=== PATIENT | female | born 1990 | race Caucasian/White ===

== ENCOUNTER 2016-08-24 22:32 | Emergency (ER) | payer OTHER ==
[~2016-08-24] VITALS: Ht 175.3 cm; Wt 104.1 kg
[~2016-08-24 22:32] MED LIST: ZOFR4TAB3 SL
[2016-08-24 22:47] VITALS: BP 129/78; PULSE 66; RESP 20; TEMP 98.8; O2SAT 100
--- NOTE | 2016-08-24 23:14 | PD ---
HPI Chief Complaint: Musculoskeletal Complaint Time Seen by Provider: 23:04 Travel History International Travel<30 days: No Contact w/Intl Traveler<30days: No Traveled to known affect area: No History of Present Illness HPI This 26-year-old female is complaining of secretions from her breast. She noticed it on the left breast 2 weeks ago. Within the last day or so it started from the right side also. She does not think she is . She has finished her period. Has a history of fibrocystic disease of the breast. 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 She has never been . Her last period was a few days ago. She says she been feeling weak for the last couple of days. She had mono in the past and she says she feels like she has mono again. There has not been any fever or sore throat PFSH Past Medical History Hx Anticoagulant Therapy: No ADHD: Yes Asthma: Yes (CHILD) Chemotherapy: No Cerebrovascular Accident: No Diabetes: No Diminished Hearing: No Respiratory: Yes (ASTHMA A CHILD) Immunizations Current: Yes : 0 Past Surgical History Ear Surgery: Yes (bilat TUBES x3) Hysterectomy: No Tonsillectomy: Yes Social History Alcohol Use: Yes (occas. beer or wine) Tobacco Use: No Substance Use: No Allergies-Medications (Allergen,Severity, Reaction): Coded Allergies: Nexium (Verified Allergy, Severe, CARDIAC PROBLEMS, 12/28/15) Augmentin (Unverified Adverse Reaction, Unknown, VOMITING, 12/28/15) Reported Meds & Prescriptions Reported Meds & Active Scripts Active Reported Zofran ODT (Ondansetron HCl) 4 Mg Tab 4 Mg SL Q6H PRN FOR NAUSEA/VOMITING Review of Systems General / Constitutional: No: Fever, Chills Eyes: No: Blurred Vision HENT: No: Headaches, Vertigo Cardiovascular: No: Chest Pain or Discomfort, Palpitations Respiratory: No: Cough, Shortness of Breath Gastrointestinal: No: Vomiting, Diarrhea Genitourinary: No: Urgency, Frequency Musculoskeletal: No: Myalgias Skin: No Itching Neurologic: No: Weakness Physical Exam Narrative GENERAL: Well-developed female SKIN: Warm and dry. HEAD: Atraumatic. Normocephalic. EYES: Pupils equal and round. No scleral icterus. No injection or drainage. ENT: No nasal bleeding or discharge. Mucous membranes pink and moist. NECK: Trachea midline. No JVD. Examination of the breast shows no masses. I do not detect any galactorrhea at this time CARDIOVASCULAR: Regular rate and rhythm. No murmur appreciated. RESPIRATORY: No accessory muscle use. Clear to auscultation. Breath sounds equal bilaterally. GASTROINTESTINAL: Abdomen soft, non-tender, nondistended. Hepatic and splenic margins not palpable. MUSCULOSKELETAL: No obvious deformities. No clubbing. No cyanosis. No edema. NEUROLOGICAL: Awake and alert. No obvious cranial nerve deficits. Motor grossly within normal limits. Normal speech. PSYCHIATRIC: Appropriate mood and affect; insight and judgment normal. 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 The fact that the galactorrhea is bilateral makes an anatomic abnormality unlikely Diagnosis Primary Impression: Galactorrhea Disposition: 01 DISCHARGE HOME Condition: Stable Nguyễn Perez MD Aug 24, 2016 23:14
[2016-08-24 23:55] LABS: AUTOMATED NEUTROPHIL # 4.7 TH/MM3 (1.8-7.7); BASOPHIL # 0.3 TH/MM3 (0-0.2); BASOPHIL % 2.7 % (0.0-2.0); EOSINOPHIL # 0.2 TH/MM3 (0-0.4); EOSINOPHIL % 1.7 % (0.0-4.0); HEMATOCRIT 38.7 % (35.0-46.0); HEMO FLAGS DIFF FINAL; LYMPH % 37.9 % (9.0-44.0); LYMPHOCYTE # 3.6 TH/MM3 (1.0-4.8); MEAN CELL VOLUME 86.9 FL (80.0-100.0); MEAN CORPUSCULAR HEMOGLOBIN 28.2 PG (27.0-34.0); MEAN CORPUSCULAR HGB CONC 32.5 % (32.0-36.0); MONO % 6.1 % (0.0-8.0); NEUT % 51.6 % (16.0-70.0); PLATELET COUNT 331 TH/MM3 (150-450); RED BLOOD COUNT 4.45 MIL/MM3 (4.00-5.30); RED CELL DISTRIBUTION WIDTH 12.8 % (11.6-17.2); WHITE BLOOD COUNT 9.4 TH/MM3 (4.0-11.0)
[2016-08-25 00:04] LABS: POTASSIUM 3.5 MEQ/L (3.5-5.1)
[2016-08-25 00:07] LABS: BICARBONATE 25.7 MEQ/L (21.0-32.0)
[2016-08-25 01:14] VITALS: BP 110/65
== END 2016-08-25 01:19 | disposition home or self-care (01) ==
LOC: PHED 22:32
DX: N64.3 Galactorrhea not associated with childbirth (principal); N60.19 Diffuse cystic mastopathy of unspecified breast; F90.9 Attention-deficit hyperactivity disorder, unspecified type; J45.909 Unspecified asthma, uncomplicated
CPT/HCPCS: 80048; 84146; 84703; 85025; 99284

== ENCOUNTER 2016-11-02 22:37 | Emergency (ER) | payer OTHER ==
[~2016-11-02] VITALS: Ht 177.8 cm; Wt 107.0 kg
[2016-11-02 22:45] VITALS: BP 128/84; PULSE 75; RESP 18; TEMP 98.8; O2SAT 98
--- NOTE | 2016-11-02 22:51 | PD ---
HPI Chief Complaint: chest and abdominal pain Time Seen by Provider: 22:40 Travel History International Travel<30 days: No Contact w/Intl Traveler<30days: No History of Present Illness HPI This is a 26 year old female who had a partial thyroidectomy performed 2 weeks ago who presents to the emergency department with 30 minutes of left-sided chest discomfort described as sharp and stabbing, constant, severe associated with shortness of breath. She says the pain gets worse when she takes a deep breath. She also has a significant amount of pain in her right upper quadrant which just started and radiates to her back. She feels nauseous but has not vomited. She denies any fevers or chills. She's not noticed any leg swelling. She says over the past 2-3 days she's had decreased appetite. She's been generally weak. She denies any diarrhea. She's never had symptoms like this before. PFSH Past Medical History Hx Anticoagulant Therapy: No ADHD: Yes Asthma: Yes (CHILD) Chemotherapy: No Cerebrovascular Accident: No Diabetes: No Diminished Hearing: No Reproductive: Yes (HEAVY PERIODS) Respiratory: Yes (ASTHMA A CHILD) Immunizations Current: Yes : 0 Past Surgical History Ear Surgery: Yes (BILATERAL TUBES) Hysterectomy: No Tonsillectomy: Yes Social History Alcohol Use: Yes (occas. beer or wine) Tobacco Use: No Substance Use: No Allergies-Medications (Allergen,Severity, Reaction): Coded Allergies: Gadolinium Derivatives (Verified Allergy, Severe, Swelling, 11/02/16) Nexium (Verified Allergy, Severe, CARDIAC PROBLEMS, 11/02/16) Augmentin (Unverified Adverse Reaction, Unknown, VOMITING, 12/28/15) Reported Meds & Prescriptions Reported Meds & Active Scripts Active Reported Cabergoline 0.5 Mg Tab 0.25 Mg PO 2XWEEK Review of Systems Except as stated in HPI: all other systems reviewed are Neg Physical Exam Narrative GENERAL: Uncomfortable appearing SKIN: Pale, well healing incisional scar over the anterior neck with no erythema or drainage HEAD: Atraumatic. Normocephalic. EYES: Pupils equal and round. No injection or drainage. ENT: Moist mucous membranes NECK: Trachea midline. CARDIOVASCULAR: Regular rate and rhythm. No murmur appreciated. RESPIRATORY: Tachypneic. Clear to auscultation. Breath sounds equal bilaterally. GASTROINTESTINAL: Abdomen soft, tender to palpation in the right upper quadrant with guarding. MUSCULOSKELETAL: No obvious deformities. NEUROLOGICAL: Awake and alert. No obvious cranial nerve deficits. Moving all extremities. PSYCHIATRIC: Appropriate mood and affect; insight and judgment normal. Data Data Last Documented VS Vital Signs Date Time Temp Pulse Resp B/P Pulse Ox O2 Delivery O2 Flow Rate FiO2 11/02/16 23:48 66 16 116/67 99 Room Air 11/02/16 22:45 98.8 Orders Complete Blood Count With Diff (11/02/16 22:47) Comprehensive Metabolic Panel (11/02/16 22:47) Ed Urine Pregnancytest Poc (11/02/16 22:47) Urinalysis - C+S If Indicated (11/02/16 22:47) D-Dimer (11/02/16 22:47) Lipase (11/02/16 22:47) Chest, Single Ap (11/02/16 ) Sodium Chlor 0.9% 1000 Ml Inj (Ns 1000 M (11/02/16 23:00) Ondansetron Inj (Zofran Inj) (11/02/16 23:00) Troponin I (11/02/16 22:47) Electrocardiogram (11/02/16 ) Morphine Inj (Morphine Inj) (11/03/16 00:15) Ct Pulmonary Angiogram (11/03/16 ) Ct Abd/Pel W Iv Contrast(Rout) (11/03/16 ) Ondansetron Inj (Zofran Inj) (11/03/16 00:45) Iohexol 350 Inj (Omnipaque 350 Inj) (11/03/16 01:03) Labs Laboratory Tests Test 11/02/16 11/02/16 23:00 23:20 White Blood Count 11.7 TH/MM3 Red Blood Count 4.52 MIL/MM3 Hemoglobin 12.9 GM/DL Hematocrit 39.3 % Mean Corpuscular Volume 86.8 FL Mean Corpuscular Hemoglobin 28.6 PG Mean Corpuscular Hemoglobin 33.0 % Concent Red Cell Distribution Width 12.9 % Platelet Count 399 TH/MM3 Mean Platelet Volume 6.8 FL Neutrophils (%) (Auto) 53.4 % Lymphocytes (%) (Auto) 33.1 % Monocytes (%) (Auto) 7.6 % Eosinophils (%) (Auto) 2.7 % Basophils (%) (Auto) 3.2 % Neutrophils # (Auto) 6.2 TH/MM3 Lymphocytes # (Auto) 3.9 TH/MM3 Monocytes # (Auto) 0.9 TH/MM3 Eosinophils # (Auto) 0.3 TH/MM3 Basophils # (Auto) 0.4 TH/MM3 CBC Comment DIFF FINAL Differential Comment Sodium Level 141 MEQ/L Potassium Level 4.0 MEQ/L Chloride Level 106 MEQ/L Carbon Dioxide Level 26.1 MEQ/L Anion Gap 9 MEQ/L Blood Urea Nitrogen 8 MG/DL Creatinine 0.95 MG/DL Estimat Glomerular Filtration 71 ML/MIN Rate Random Glucose 105 MG/DL Calcium Level 8.8 MG/DL Total Bilirubin 0.4 MG/DL Aspartate Amino Transf 26 U/L (AST/SGOT) Alanine Aminotransferase 39 U/L (ALT/SGPT) Alkaline Phosphatase 75 U/L Troponin I LESS THAN 0.02 NG/ML Total Protein 7.9 GM/DL Albumin 4.0 GM/DL Lipase 231 U/L D-Dimer Quantitative (PE/DVT) 0.68 MG/L FEU Urine Color YELLOW Urine Turbidity CLEAR Urine pH 5.5 Urine Specific [place] 1.011 Urine Protein NEG mg/dL Urine Glucose (UA) NEG mg/dL Urine Ketones NEG mg/dL Urine Occult Blood NEG Urine Nitrite NEG Urine Bilirubin NEG Urine Leukocyte Esterase NEG Urine Squamous Epithelial 0-5 /hpf Cells Urine Amorphous Sediment SMALL Microscopic Urinalysis Comment CULT NOT INDICATED MDM Medical Decision Making Medical Screen Exam Complete: Yes Emergency Medical Condition: Yes Interpretation(s) Afebrile, no tachycardia, normotensive Mild Leukocytosis Electrolytes are reassuring Troponin is normal Lipase is 231 D dimer slightly elevated Urinalysis is negative for infection EKG: Normal sinus rhythm with no ST changes Last 24 hours Impressions Chest X-Ray 11/02/16 0000 Signed Impressions: Service Date/Time: Wednesday, November 02, 2016 23:05 - CONCLUSION: No acute disease. Lb Lin MD CT chest: No pulmonary embolism CT abdomen and pelvis: No acute process Differential Diagnosis Pulmonary embolism, pericarditis, pleural effusion, pneumonia, cholelithiasis, cholecystitis Narrative Course This is a 26 year old female who recently had a thyroidectomy who presents to the emergency department with chest pain and right upper quadrant abdominal pain. She was quite uncomfortable appearing on arrival, tachypneic and moaning in pain. She is placed on a monitor and an IV was established. Labs are obtained which were all reassuring. She did mildly elevated d-dimer. CT pulmonary angiogram were obtained and given her degree of discomfort a CT abdomen and pelvis was also obtained. All of her imaging and labs are reassuring. I don't have a good explanation for her symptoms but I don't think there is a surgical or emergent nature to them. I think patient can be safely discharged home and can follow-up with her primary care physician. Diagnosis Primary Impression: Abdominal pain Qualified Code: R10.11 - Right upper quadrant abdominal pain Patient Instructions: General Instructions Additional Instructions: If you develop severe or worsening abdominal pain, fever>100.4, persistent vomiting or inability to eat or drink return to the emergency department immediately. Follow up with your primary care physician in 1-2 days for a check-up. Med/Other Pt SpecificInfo: Prescription(s) given Scripts Ondansetron Odt (Zofran Odt)4 Mg Tab4 Mg SL Q6HR PRN (Nausea/Vomiting) #15 TAB Prov:Coty Conte MD 11/03/16 Disposition: 01 DISCHARGE HOME Condition: Stable Coty Conte MD Nov 02, 2016 22:51
[2016-11-02] MEDS ORDERED: ONDANSETRON HCL 4 MG/2 ML VIAL IV PUSH ONE (23:00)
[2016-11-02] MEDS ORDERED: SODIUM CHLOR 0.9% 1000 ML INJ 1,000 ML IV ONE (23:00)
[2016-11-02 23:10] LABS: AUTOMATED NEUTROPHIL # 6.2 TH/MM3 (1.8-7.7); BASOPHIL # 0.4 TH/MM3 (0-0.2); BASOPHIL % 3.2 % (0.0-2.0); EOSINOPHIL # 0.3 TH/MM3 (0-0.4); EOSINOPHIL % 2.7 % (0.0-4.0); HEMATOCRIT 39.3 % (35.0-46.0); LYMPH % 33.1 % (9.0-44.0); LYMPHOCYTE # 3.9 TH/MM3 (1.0-4.8); MEAN CELL VOLUME 86.8 FL (80.0-100.0); MEAN CORPUSCULAR HEMOGLOBIN 28.6 PG (27.0-34.0); MONO % 7.6 % (0.0-8.0); NEUT % 53.4 % (16.0-70.0); PLATELET COUNT 399 TH/MM3 (150-450); RED BLOOD COUNT 4.52 MIL/MM3 (4.00-5.30); RED CELL DISTRIBUTION WIDTH 12.9 % (11.6-17.2); WHITE BLOOD COUNT 11.7 TH/MM3 (4.0-11.0)
[2016-11-02 23:14] LABS: HEMO FLAGS DIFF FINAL
[2016-11-02 23:17] LABS: CHLORIDE 106 MEQ/L (98-107); SODIUM (NA) 141 MEQ/L (136-145)
[2016-11-02 23:22] LABS: ANION GAP 9 MEQ/L (5-15); BICARBONATE 26.1 MEQ/L (21.0-32.0); BLOOD UREA NITROGEN 8 MG/DL (7-18)
[2016-11-02 23:24] LABS: ALT (GPT) 39 U/L (10-53); AST (GOT) 26 U/L (15-37)
[2016-11-02 23:25] LABS: GLOMERULAR FILTRATION RATE 71 ML/MIN (>89)
[2016-11-02 23:26] LABS: TOTAL BILIRUBIN ADULT 0.4 MG/DL (0.2-1.0)
[2016-11-02 23:27] LABS: ALKALINE PHOSPHATASE 75 U/L (45-117)
[2016-11-02 23:41] LABS: BLOOD, URINE NEG (NEG); GLUCOSE,URINE NEG (NEG); KETONE, URINE NEG (NEG); NITRITE,URINE NEG (NEG); PH, URINE 5.5 (5.0-8.5)
[2016-11-02 23:48] VITALS: BP 116/67; PULSE 66; RESP 16; O2SAT 99
[2016-11-02] MEDS ORDERED: CABE0.5T PO (23:49)
[2016-11-02 23:51] LABS: URINE COLOR YELLOW (YELLW/STRAW)
[2016-11-02 23:52] LABS: SQUAMOUS EPITHELIAL CELL URINE 0-5 /hpf (0-5)
[2016-11-02 23:53] LABS: COMMENT (UR) CULT NOT INDICATED; CULTURE IF INDICATED CULT NOT INDICATED
[2016-11-03] MEDS ORDERED: MORPHINE SULFATE 4 MG/ML INJ IV PUSH ONE (00:15)
--- NOTE | 2016-11-03 00:16 | RADHPO ---
EXAM DATE/TIME: 11/02/2016 23:05 [facility] COMPARISON: No previous studies available for comparison. INDICATIONS : Short of breath. MEDICAL HISTORY : None. SURGICAL HISTORY : None. ENCOUNTER: Initial ACUITY: 1 day PAIN SCORE: 7/10 LOCATION: Bilateral chest FINDINGS: A single view of the chest demonstrates the lungs to be symmetrically aerated without evidence of mas s, infiltrate or effusion. The cardiomediastinal contours are unremarkable. Osseous structures are intact. CONCLUSION: No acute disease. Lb Lin MD on November 03, 2016 at 0:14 Board Certified Radiologist. This report was verified electronically.
[2016-11-03 00:25] VITALS: RESP 16
[2016-11-03] MEDS ORDERED: ONDANSETRON HCL 4 MG/2 ML VIAL IV ONE (00:45)
[2016-11-03] MEDS ORDERED: IOHEXOL 350 MG/ML 10 ML VIAL (for RAD DIAG) IV ONE (01:03)
--- NOTE | 2016-11-03 01:21 | RADHPO ---
EXAM DATE/TIME: 11/03/2016 00:41 [facility] COMPARISON: No previous studies available for comparison. INDICATIONS : Left sided chest pain with shortness of breath. IV CONTRAST: 100 cc Omnipaque 350 (iohexol) IV ; Cumulative dose for multiple exams. RADIATION DOSE: 24.61 CTDIvol (mGy) MEDICAL HISTORY : None SURGICAL HISTORY : Thyroidectomy. ENCOUNTER: Initial ACUITY: 1 day PAIN SCALE: 8/10 LOCATION: Left chest TECHNIQUE: Volumetric scanning of the chest was performed using a pulmonary embolism protocol MIP images were re constructed. Using automated exposure control and adjustment of the mA and/or kV according to patien t size, radiation dose was kept as low as reasonably achievable to obtain optimal diagnostic quality images. FINDINGS: PULMONARY ARTERIES: No filling defects are seen in the pulmonary arteries through the segmental level. LUNGS: There is no consolidation or pneumothorax . No concerning pulmonary nodule is visualized. PLEURAE: There is no pleural thickening or pleural effusion. MEDIASTINUM: There is good visualization of the great vessels of the middle mediastinum. No evidence of mediastin al or hilar adenopathy/mass. MUSCULOSKELETAL: Within normal limits for patient age. MISCELLANEOUS: The visualized upper abdominal organs demonstrate no acute abnormality. CONCLUSION: 1. No evidence for pulmonary embolism. 2. No infiltrate or pleural effusion. Lb Lin MD on November 03, 2016 at 1:19 Board Certified Radiologist. This report was verified electronically.
--- NOTE | 2016-11-03 01:23 | RADHPO ---
EXAM DATE/TIME: 11/03/2016 00:41 [facility] COMPARISON: CT ABDOMEN & PELVIS W CONTRAST, October 04, 2015, 6:38. INDICATIONS : Right upper quadrant pain radiating to the back. IV CONTRAST: 100 cc Omnipaque 350 (iohexol) IV ; Cumulative dose for multiple exams. ORAL CONTRAST: No oral contrast ingested. RADIATION DOSE: 22.01 CTDIvol (mGy) MEDICAL HISTORY : None SURGICAL HISTORY : Thyroidectomy. ENCOUNTER: Initial ACUITY: 1 day PAIN SCALE: 7/10 LOCATION: Right upper quadrant TECHNIQUE: Volumetric scanning of the abdomen and pelvis was performed. Using automated exposure control and ad justment of the mA and/or kV according to patient size, radiation dose was kept as low as reasonably achievable to obtain optimal diagnostic quality images. FINDINGS: LOWER LUNGS: The visualized lower lungs are clear. LIVER: Homogeneous density without lesion. There is no dilation of the biliary tree. No calcified gallston es. SPLEEN: Normal size without lesion. PANCREAS: Within normal limits. KIDNEYS: Normal in size and shape. There is no mass, stone or hydronephrosis. ADRENAL GLANDS: Within normal limits. VASCULAR: There is no aortic aneurysm. BOWEL/MESENTERY: The stomach, small bowel, and colon demonstrate no acute abnormality. There is no free intraperitone al air or fluid. ABDOMINAL WALL: Within normal limits. RETROPERITONEUM: There is no lymphadenopathy. BLADDER: No wall thickening or mass. REPRODUCTIVE: Within normal limits. INGUINAL: There is no lymphadenopathy or hernia. MUSCULOSKELETAL: Within normal limits for patient age. CONCLUSION: 1. No acute inflammatory process. Lb Lin MD on November 03, 2016 at 1:20 Board Certified Radiologist. This report was verified electronically.
[2016-11-03] MEDS ORDERED: ZOFR4TAB3 SL ×2 (01:28→01:29)
[2016-11-03 01:54] VITALS: BP_SYST 116
--- NOTE | 2016-11-03 13:56 | EKG ---
Date Performed: 11/02/2016 Time Performed: 22:48:46 PTAGE: 26 years EKG: Sinus rhythm . Normal ECG NO PREVIOUS TRACING DOCTOR: Rama Esparza Interpretating Date/Time 11/03/2016 13:55:36
== END 2016-11-03 01:55 | disposition home or self-care (01) ==
LOC: PHED 22:37
DX: R10.11 Right upper quadrant pain (principal); J45.909 Unspecified asthma, uncomplicated
CPT/HCPCS: 71010; 71275; 74177; 80053; 81001; 83690; 84484; 84703; 85025; 85379; 93005; 96361; 96374; 96375; 96376; 99284; J2270; J2405; J7030; Q9967

== ENCOUNTER 2017-03-23 15:51 | Emergency (ER) | payer OTHER ==
[~2017-03-23] VITALS: Ht 175.3 cm; Wt 111.0 kg
[~2017-03-23 15:51] MED LIST changes: +CABE0.5T PO
[2017-03-23 16:02] VITALS: BP 130/69; PULSE 100; RESP 32; TEMP 98.2; O2SAT 99
[2017-03-23 16:33] VITALS: BP 130/69; PULSE 70; RESP 18; O2SAT 100
[2017-03-23] MEDS ORDERED: BROM5CAP PO (16:38)
[2017-03-23] MEDS ORDERED: CLIN1CAP6 PO (16:38)
[2017-03-23] MEDS ORDERED: SODIUM CHLOR 0.9% 1000 ML INJ 1,000 ML IV SCH (17:04)
[2017-03-23] MEDS ORDERED: HYDROmorphone HCL PF 2 MG/ML VIAL IVS ONE (17:15)
[2017-03-23] MEDS ORDERED: ALUMINUM/MAGNESIUM/SIMETH 30 ML CUP PO ONE (17:15)
[2017-03-23] MEDS ORDERED: LIDOCAINE VISCOUS 2% SOLN 15 ML UDC PO ONE (17:15)
[2017-03-23 17:22] LABS: AUTOMATED NEUTROPHIL # 8.4 TH/MM3 (1.8-7.7); BASOPHIL # 0.2 TH/MM3 (0-0.2); BASOPHIL % 1.5 % (0.0-2.0); EOSINOPHIL # 0.1 TH/MM3 (0-0.4); EOSINOPHIL % 1.2 % (0.0-4.0); HEMATOCRIT 35.8 % (35.0-46.0); LYMPH % 22.4 % (9.0-44.0); LYMPHOCYTE # 2.7 TH/MM3 (1.0-4.8); MEAN CELL VOLUME 84.4 FL (80.0-100.0); MEAN CORPUSCULAR HEMOGLOBIN 27.6 PG (27.0-34.0); MEAN CORPUSCULAR HGB CONC 32.8 % (32.0-36.0); MONO % 4.3 % (0.0-8.0); NEUT % 70.6 % (16.0-70.0); PLATELET COUNT 370 TH/MM3 (150-450); RED BLOOD COUNT 4.24 MIL/MM3 (4.00-5.30); RED CELL DISTRIBUTION WIDTH 12.4 % (11.6-17.2); WHITE BLOOD COUNT 11.9 TH/MM3 (4.0-11.0)
[2017-03-23 17:24] LABS: HEMO FLAGS DIFF FINAL
[2017-03-23 17:32] LABS: CHLORIDE 105 MEQ/L (98-107); POTASSIUM 3.4 MEQ/L (3.5-5.1); SODIUM (NA) 138 MEQ/L (136-145)
[2017-03-23 17:35] LABS: ANION GAP 5 MEQ/L (5-15); BLOOD UREA NITROGEN 12 MG/DL (7-18)
[2017-03-23 17:38] LABS: GLOMERULAR FILTRATION RATE 67 ML/MIN (>89)
[2017-03-23 17:43] LABS: BETA HCG QUANT LESS THAN 1 MIU/ML (0-5)
[2017-03-23] MEDS ORDERED: IOHEXOL 350 MG/ML 10 ML VIAL (for RAD DIAG) IVCONTRAST ONE (18:01)
--- NOTE | 2017-03-23 18:47 | PD ---
HPI Chief Complaint: ENT Complaint Time Seen by Provider: 16:56 Travel History International Travel<30 days: No Contact w/Intl Traveler<30days: No Traveled to known affect area: No History of Present Illness HPI The patient's and 27 years old. She is a history of L hemithyroidectomy due to concern for thyroid neoplasm. Today shortly after using a tanning bed the patient experienced sudden onset of extreme pain in the region of the neck. Chest pain radiating from the region of the thyroid is reported. Patient reports constant 8/10 pain with occasional spikes to 10 over 10. Patient describes it as a sensation as though the thyroid gland "ripped open" and as if there is a golf ball in the throat. Pain with swallowing and breathing is reported. No fever. No similar prior episodes. Pain quality described as spasming. History Past Medical History Tetanus Vaccination: Unknown LMP: LAST WEEK : 0 Social History Alcohol Use: Yes (occas. beer or wine) Tobacco Use: No Allergies-Medications (Allergen,Severity, Reaction): Coded Allergies: esomeprazole (Unverified Allergy, Severe, CARDIAC PROBLEMS, 03/23/17) gadobenic acid (Unverified Allergy, Severe, Swelling, 03/23/17) gadodiamide (Unverified Allergy, Severe, Swelling, 03/23/17) gadoteridol (Unverified Allergy, Severe, Swelling, 03/23/17) amoxicillin (Unverified Adverse Reaction, Unknown, VOMITING, 03/23/17) clavulanic acid (Unverified Adverse Reaction, Unknown, VOMITING, 03/23/17) Reported Meds & Prescriptions Reported Meds & Active Scripts Active Tramadol (Tramadol HCl) 50 Mg Tab 100 Mg PO Q6H PRN Reported Clindamycin (Clindamycin HCl) 300 Mg Cap 300 Mg PO TID Bromocriptine (Bromocriptine Mesylate) 5 Mg Cap 7.5 Mg PO DAILY Review of Systems Except as stated in HPI: all other systems reviewed are Neg General / Constitutional: No: Fever Cardiovascular: Positive: Chest Pain or Discomfort Respiratory: No: Cough, Shortness of Breath Physical Exam Narrative GENERAL: 27-year-old female pleasant well-nourished well-developed SKIN: Warm and dry. HEAD: Atraumatic. Normocephalic. EYES: Pupils equal and round. No scleral icterus. No injection or drainage. ENT: No nasal bleeding or discharge. Mucous membranes pink and moist. NECK: Trachea midline. No JVD. There is no mass crepitus erythema induration or warmth about the neck. Mildly prominent submandibular lymph nodes are present bilaterally with minimal tenderness. CARDIOVASCULAR: Regular rate and rhythm. RESPIRATORY: No accessory muscle use. Clear to auscultation. Breath sounds equal bilaterally. GASTROINTESTINAL: Abdomen soft, non-tender, nondistended. Hepatic and splenic margins not palpable. MUSCULOSKELETAL: Extremities without clubbing, cyanosis, or edema. No obvious deformities. NEUROLOGICAL: Awake and alert. No obvious cranial nerve deficits. Motor grossly within normal limits. Five out of 5 muscle strength in the arms and legs. Normal speech. PSYCHIATRIC: Appropriate mood and affect; insight and judgment normal. Data Data Last Documented VS Vital Signs Date Time Temp Pulse Resp B/P (MAP) Pulse Ox O2 Delivery O2 Flow Rate FiO2 03/23/17 16:33 70 18 130/69 (89) 100 Room Air 03/23/17 16:02 98.2 Vital signs reviewed Orders Orders Complete Blood Count With Diff (03/23/17 17:04) Basic Metabolic Panel (Bmp) (03/23/17 17:04) Thyroid Stimulating Hormone (03/23/17 17:04) Ecg Monitoring (03/23/17 17:04) Beta Hcg (Quant/Titer) (03/23/17 17:04) Troponin I (03/23/17 17:04) Hydromorphone Pf Inj (Dilaudid Pf Inj) (03/23/17 17:15) Sodium Chlor 0.9% 1000 Ml Inj (Ns 1000 M (03/23/17 17:04) Al-Mag Hy-Si 40-40-4 Mg/Ml Liq (Mag-Al P (03/23/17 17:15) Lidocaine 2% Viscous (Xylocaine 2% Visco (03/23/17 17:15) Ct Soft Tiss Neck W Iv Cont (03/23/17 ) Ed Urine Pregnancytest Poc (03/23/17 17:04) Iohexol 350 Inj (Omnipaque 350 Inj) (03/23/17 18:01) Hydromorphone Pf Inj (Dilaudid Pf Inj) (03/23/17 19:00) Labs Laboratory Tests Test 03/23/17 17:15 White Blood Count 11.9 TH/MM3 Red Blood Count 4.24 MIL/MM3 Hemoglobin 11.7 GM/DL Hematocrit 35.8 % Mean Corpuscular Volume 84.4 FL Mean Corpuscular Hemoglobin 27.6 PG Mean Corpuscular Hemoglobin Concent 32.8 % Red Cell Distribution Width 12.4 % Platelet Count 370 TH/MM3 Mean Platelet Volume 6.9 FL Neutrophils (%) (Auto) 70.6 % Lymphocytes (%) (Auto) 22.4 % Monocytes (%) (Auto) 4.3 % Eosinophils (%) (Auto) 1.2 % Basophils (%) (Auto) 1.5 % Neutrophils # (Auto) 8.4 TH/MM3 Lymphocytes # (Auto) 2.7 TH/MM3 Monocytes # (Auto) 0.5 TH/MM3 Eosinophils # (Auto) 0.1 TH/MM3 Basophils # (Auto) 0.2 TH/MM3 CBC Comment DIFF FINAL Differential Comment Blood Urea Nitrogen 12 MG/DL Creatinine 1.00 MG/DL Random Glucose 91 MG/DL Calcium Level 8.3 MG/DL Sodium Level 138 MEQ/L Potassium Level 3.4 MEQ/L Chloride Level 105 MEQ/L Carbon Dioxide Level 28.0 MEQ/L Anion Gap 5 MEQ/L Estimat Glomerular Filtration Rate 67 ML/MIN Troponin I LESS THAN 0.02 NG/ML Thyroid Stimulating Hormone 3rd Gen 2.730 uIU/ML Human Chorionic Gonadotropin, Quant LESS THAN 1 MIU/ML MDM Medical Decision Making Medical Screen Exam Complete: Yes Emergency Medical Condition: Yes Differential Diagnosis Thyroid toxicosis, dissection of the carotid arteries, cellulitis, abscess, anaphylaxis, bleed, neoplasm Narrative Course CBC & BMP Diagram 03/23/17 17:15 Calcium Level 8.[address] neck reveals digastric lymph nodes up to 1.2cm, otherwise 0.7 cm nodule right lobe of the thyroid and mild mucosal thickening in the maxillary sinuses The patient is resting comfortably and feels better, is alert and in no distress. The patients results and examination findings were discussed. The repeat examination is unremarkable and benign. The history, exam, diagnostic testing, and current condition do not suggest any significant pathology to warrant further testing, continued ED treatment, admission, or surgical evaluation at this point. The vital signs have been stable. The patient does not have uncontrollable pain, intractable vomiting, or other significant symptoms. The patient's condition is stable and appropriate for discharge. The patient will pursue further outpatient evaluation with a primary care physician or other designated or consulting physician as indicated in the discharge instructions. The patient expressed understanding and was agreeable with this plan. 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 Hopefully, we have met your expectations on today's visit. You are welcome to return to [facility] at any time, as we are committed to meeting the health care needs of our community. Med/Other Pt SpecificInfo: Prescription(s) given Scripts Tramadol (Tramadol) 50 Mg Tab 100 MG PO Q6H Y for PAIN SCALE 6 TO 10, #20 TAB 0 Refills Prov: Raymond Mullins MD 03/23/17 Disposition: 01 DISCHARGE HOME Condition: Stable Raymond Mullins MD Mar 23, 2017 18:47
--- NOTE | 2017-03-23 18:52 | RADRPT ---
EXAM DATE/TIME: 03/23/2017 17:54 [facility] COMPARISON: No previous studies available for comparison. INDICATIONS : Throat pain and spasms after lying in tanning bed. Recent partial thyroidectomy IV CONTRAST: 75 cc Omnipaque 350 (iohexol) IV RADIATION DOSE: 15.76 CTDIvol (mGy) MEDICAL HISTORY : None SURGICAL HISTORY : Tonsillectomy. Partial thyroidectomy. ENCOUNTER: Initial ACUITY: 1 day PAIN SCALE: 3/10 LOCATION: neck TECHNIQUE: Volumetric scanning of the neck was performed. Using automated exposure control and adjustment of th e mA and/or kV according to patient size, radiation dose was kept as low as reasonably achievable to obtain optimal diagnostic quality images. DICOM format image data is available electronically for r eview and comparison. FINDINGS: NASOPHARYNX: The nasopharyngeal airway has a normal configuration. No mucosal thickening or mass is seen. OROPHARYNX: The intrinsic muscles of the tongue are symmetric. The tonsillar pillars are intact. The prevertebr al soft tissues are not thickened. LARYNX: The supraglottic, glottic, and infraglottic structures are intact. PARAPHARYNGEAL: The parapharyngeal space is intact. SALIVARY GLANDS: The parotid and submandibular glands are intact. LYMPH NODES: There are some scattered mildly prominent lymph nodes measuring up to 1.2 centers in digastric region s bilaterally. THYROID: The patient is status post left hemithyroidectomy. There is a 0.7 cm nodule in the right lobe. BONES: Unremarkable. OTHER: There is mild mucosal thickening at the maxillary sinuses being more prominent on the right. CONCLUSION: 1. Minimally prominent lymph nodes in digastric regions. These are nonspecific. 2. Status post left hemithyroidectomy. There is a 0.7 cm nodule in the right lobe. 3. Mild mucosal thickening at the maxillary sinuses. Barrera Bragg MD on March 23, 2017 at 18:42 Board Certified Radiologist. This report was verified electronically.
[2017-03-23 19:00] VITALS: BP 117/64; PULSE 68; RESP 18; O2SAT 96
[2017-03-23] MEDS ORDERED: HYDROmorphone HCL PF 1 MG/ML VIAL IV PUSH ONE (19:00)
[2017-03-23] MEDS ORDERED: TRAM50TA PO (19:07)
[2017-03-23 19:54] VITALS: BP 116/64
[2017-03-23 20:02] VITALS: RESP 16
== END 2017-03-23 20:39 | disposition home or self-care (01) ==
LOC: PHED 15:51
DX: M54.2 Cervicalgia (principal); R59.9 Enlarged lymph nodes, unspecified; E04.1 Nontoxic single thyroid nodule
CPT/HCPCS: 70491; 80048; 84443; 84484; 84702; 85025; 96361; 96374; 96376; 99285; J1170; J7030; Q9967

== ENCOUNTER 2017-06-16 16:09 | Emergency (ER) | payer OTHER ==
[~2017-06-16] VITALS: Ht 175.3 cm; Wt 114.0 kg
[~2017-06-16 16:09] MED LIST changes: +BROM5CAP PO; -CABE0.5T PO; +CLIN300C5 PO; +TRAM50TA PO; -ZOFR4TAB3 SL
[2017-06-16 16:14] VITALS: BP 144/70; PULSE 96; RESP 16; TEMP 98.6; O2SAT 100
[2017-06-16] MEDS ORDERED: IBUPROFEN 600 MG TAB PO ONE (16:30)
--- NOTE | 2017-06-16 16:35 | PD ---
HPI Chief Complaint: Edema Time Seen by Provider: 16:25 Travel History International Travel<30 days: No Contact w/Intl Traveler<30days: No Traveled to known affect area: No History of Present Illness HPI 27-year-old female here for evaluation of left antecubital fossa pain and swelling. The patient reports that last month she had an MRI arthrogram of her left shoulder ordered by her orthopedist and was found to have a grade 1 before AC joint separation. She states that an IV was placed in her left antecubital fossa at that time for the study. Over the last couple of days she noticed an area of firmness in the left antecubital fossa, and today someone pressed on it and it felt like something popped. Patient experienced immediate pain to the site and reports that she is having shooting pains up and down her left arm. Pain is severe, constant, worse with movements. No paresthesias. No history of DVT or PE. No chest pain or dyspnea. PFSH Past Medical History Hx Anticoagulant Therapy: No ADHD: Yes Asthma: Yes (CHILD) Chemotherapy: No Cerebrovascular Accident: No Diabetes: No Diminished Hearing: No Reproductive: Yes (HEAVY PERIODS) Respiratory: Yes (ASTHMA A CHILD) Immunizations Current: Yes Thyroid Disease: Yes (partial thyroidectomy ) LMP: 1 WEEK AGO : 0 Past Surgical History Ear Surgery: Yes (BILATERAL TUBES) Hysterectomy: No Tonsillectomy: Yes Social History Alcohol Use: Yes (occas. beer or wine) Tobacco Use: No Substance Use: No Allergies-Medications (Allergen,Severity, Reaction): Coded Allergies: esomeprazole (Unverified Allergy, Severe, CARDIAC PROBLEMS, 06/16/17) gadobenic acid (Unverified Allergy, Severe, Swelling, 06/16/17) gadodiamide (Unverified Allergy, Severe, Swelling, 06/16/17) gadoteridol (Unverified Allergy, Severe, Swelling, 06/16/17) amoxicillin (Unverified Adverse Reaction, Unknown, VOMITING, 06/16/17) clavulanic acid (Unverified Adverse Reaction, Unknown, VOMITING, 06/16/17) Reported Meds & Prescriptions Reported Meds & Active Scripts Active Reported Bromocriptine (Bromocriptine Mesylate) 5 Mg Cap 7.5 Mg PO DAILY Review of Systems Except as stated in HPI: all other systems reviewed are Neg Physical Exam Narrative GENERAL: Well-developed, well-nourished, comfortable, no apparent distress. SKIN: Focused skin assessment warm/dry. HEAD: Atraumatic. Normocephalic. EYES: Pupils equal and round. No scleral icterus. No injection or drainage. ENT: Mucous membranes pink and moist. NECK: Trachea midline. No JVD. CARDIOVASCULAR: Regular rate and rhythm. Bilateral distal radial pulses are brisk and equal. RESPIRATORY: No accessory muscle use. Clear to auscultation. Breath sounds equal bilaterally. MUSCULOSKELETAL: No obvious deformities. No clubbing. No cyanosis. No edema. Left antecubital fossa and distal arm with tenderness without fluctuance or induration with mild edema and mild warmth, no erythema. All compartments in the left upper extremity are supple. Normal range of motion in the left arm in the shoulder, elbow, and wrist, however movements cause discomfort/pain. NEUROLOGICAL: Awake and alert. No obvious cranial nerve deficits. Motor grossly within normal limits. Normal speech. Normal sensation in left upper extremity. PSYCHIATRIC: Appropriate mood and affect; insight and judgment normal. Data Data Last Documented VS Vital Signs Date Time Temp Pulse Resp B/P (MAP) Pulse Ox O2 Delivery O2 Flow Rate FiO2 06/16/17 19:01 85 16 119/69 (86) 100 Room Air 06/16/17 16:14 98.6 Orders Orders Ibuprofen (Motrin) (06/16/17 16:30) Us Arm Venous Doppler (06/16/17 ) Us Arm Soft Tissue (06/16/17 ) Urinalysis - C+S If Indicated (06/16/17 20:12) Labs Laboratory Tests Test 06/16/17 20:15 Urine Color YELLOW Urine Turbidity MOD Urine pH 5.5 Urine Specific [place] 1.030 Urine Protein NEG mg/dL Urine Glucose (UA) NEG mg/dL Urine Ketones NEG mg/dL Urine Occult Blood NEG Urine Nitrite NEG Urine Bilirubin NEG Urine Leukocyte Esterase NEG Urine Squamous Epithelial Cells 0-5 /hpf Urine Amorphous Sediment LARGE Urine Mucus FEW /lpf Microscopic Urinalysis Comment CULT NOT INDICATED MDM Medical Decision Making Medical Screen Exam Complete: Yes Emergency Medical Condition: Yes Differential Diagnosis DVT, superficial thrombophlebitis Narrative Course Vital signs show heart rate 85, blood pressure 119/69, pulse ox 100% on room air , oral temp of 98.6 reason Fahrenheit. Left upper extremity venous duplex: Negative for deep vein thrombosis of the left upper extremity. Left antecubital fossa ultrasound: Unremarkable exam. Patient was made aware of both findings. She does feel slightly feverish. There are no signs of cellulitis on exam. She does have some dysuria and her urine is notably cloudy. UA will be obtained. UA is not suggestive of UTI. The patient's pain has somewhat improved with ibuprofen. At this point I believe she is stable for discharge home with further workup as an outpatient. I advised that she follow-up with her orthopedist or primary care physician this week. She was informed on when to return to the emergency department. Ibuprofen for pain. She verbalizes understanding and agreement with plan. Diagnosis Primary Impression: Left arm pain Referrals: Orthopedist 3 days Primary Care Physician 3 days Additional Instructions: Follow-up with your primary care physician this week. Follow-up with your orthopedist this week. Take ibuprofen for pain. Return to the emergency department for worsening symptoms or any other concerns as discussed. Disposition: 01 DISCHARGE HOME Condition: Stable Palomo Franklin MD Jun 16, 2017 16:35
[2017-06-16 19:01] VITALS: BP 119/69; PULSE 85; RESP 16; O2SAT 100
--- NOTE | 2017-06-16 19:30 | RADRPT ---
EXAM DATE/TIME: 06/16/2017 18:10 [facility] COMPARISON: No previous studies available for comparison. INDICATIONS : Left arm pain. MEDICAL HISTORY : Glasses. Asthma. Attention deficit hyperactivity disorder. SURGICAL HISTORY : Tonsillectomy. Partial thyroidectomy. Bilateral tube surgery. Right foot surgery. Bilateral should er surgery. ENCOUNTER: Initial ACUITY: 1 week PAIN SCORE: 6/10 LOCATION: Left arm. FINDINGS: There is spontaneous flow documented in the brachial, basilic, cephalic, axillary, and subclavian vei ns. The vessels are compressible and augmentation response is documented. No filling defects are se en. The flow is phasic with respiration. Direction of flow in the jugular vein is caudal. CONCLUSION: Negative for deep venous thrombosis left upper extremity. Drake Barrow MD on June 16, 2017 at 19:28 Board Certified Radiologist. This report was verified electronically.
[2017-06-16 20:21] LABS: BLOOD, URINE NEG (NEG); GLUCOSE,URINE NEG (NEG); KETONE, URINE NEG (NEG); NITRITE,URINE NEG (NEG); PH, URINE 5.5 (5.0-8.5)
[2017-06-16 20:28] LABS: MUCUS URINE FEW /lpf (OCC); SQUAMOUS EPITHELIAL CELL URINE 0-5 /hpf (0-5); URINE COLOR YELLOW (YELLW/STRAW)
[2017-06-16 20:29] LABS: COMMENT (UR) CULT NOT INDICATED; CULTURE IF INDICATED CULT NOT INDICATED
--- NOTE | 2017-06-16 20:57 | RADRPT ---
EXAM DATE/TIME: 06/16/2017 18:35 [facility] COMPARISON: No previous studies available for comparison. INDICATIONS : Fluid collection. MEDICAL HISTORY : Glasses. Asthma. Attention deficit hyperactivity disorder. SURGICAL HISTORY : Tonsillectomy. ENCOUNTER: Initial ACUITY: 1 week PAIN SCORE: 6/10 LOCATION: Left arm. AREA EVALUATED: Left arm AC area. FINDINGS: Targeted ultrasound of the left antecubital fossa was performed. Intact flow the cephalic vein. No solid or cystic abnormality seen. CONCLUSION: Negative sonographic evaluation of the antecubital fossa. Drake Barrow MD on June 16, 2017 at 20:04 Board Certified Radiologist. This report was verified electronically.
[2017-06-16 21:00] VITALS: BP 123/68
[2017-06-16 21:08] VITALS: BP 155/84; PULSE 87; RESP 16; O2SAT 99
== END 2017-06-16 21:02 | disposition home or self-care (01) ==
LOC: PHED 16:09
DX: M79.602 Pain in left arm (principal)
CPT/HCPCS: 76882; 81001; 93971; 99285